=== PATIENT | male | born 1965 | race African-American/Black ===

== ENCOUNTER 2018-07-12 14:00 | Emergency (ER) | payer MEDICARE, MEDICAID ==
[~2018-07-12] VITALS: Ht 177.8 cm; Wt 145.0 kg
[2018-07-12 14:16] VITALS: BP 101/72
== END 2018-07-12 18:56 | disposition left against medical advice (07) ==
LOC: ER 14:00
DX: N39.0 Urinary tract infection, site not specified (principal); I10 Essential (primary) hypertension; F12.10 Cannabis abuse, uncomplicated; F17.200 Nicotine dependence, unspecified, uncomplicated; Z53.21 Procedure and treatment not carried out due to patient leaving prior to being seen by health care provider

== ENCOUNTER 2022-03-08 07:08 | Emergency (ER) | payer OTHER, MEDICAID ==
[~2022-03-08] VITALS: Ht 182.9 cm; Wt 137.0 kg
[2022-03-08] MEDS ORDERED: xarelto (07:47)
[2022-03-08] MEDS ORDERED: gabapentin (07:47)
[2022-03-08] MEDS ORDERED: metoprolol (07:47)
[2022-03-08] MEDS ORDERED: [UNRECOGNIZED DRUG - OTHER] (07:47)
[2022-03-08] MEDS ORDERED: AMOX1TAB15 PO (07:47)
[2022-03-08] MEDS ORDERED: LOSA1TAB37 PO (07:47)
[2022-03-08 08:24] LABS: HEMATOCRIT. 41.6 % (42.0-52.0); HEMOGLOBIN. 13.9 g/dL (14.0-18.0); MEAN CORPUSCULAR HEMOGLOBIN 27.5 pg (28.0-32.0); MEAN CORPUSCULAR VOLUME 81.9 fL (80.0-94.0); PLATELET 180 x1000/uL (130-400); RED BLOOD CELL COUNT 5.08 mill/uL (4.7-6.1); RED CELL DISTRIBUTION WIDTH 15.3 % (11.6-14.6)
[2022-03-08 08:42] LABS: CHLORIDE 96 mEq/L (98-107)
[2022-03-08] MEDS ORDERED: HYDROCODONE/ACETAMINOPHEN 5/325MG TABLET PO ONE (08:45)
[2022-03-08 09:44] LABS: PLATELET ESTIMATE NORMAL
[2022-03-08] MEDS ORDERED: CEFTRIAXONE SODIUM 1 G/VIAL IM ONE (10:30)
[2022-03-08] MEDS ORDERED: DOXY100C5 MT (10:57)
[2022-03-08] MEDS ORDERED: MAGNESIUM/ALUMINUM HYDROXIDE/SIMETHICONE 30ML UDC PO ONE (11:00)
[2022-03-08 11:09] LABS: CLARITY URINE CLOUDY (CLEAR); COLOR URINE ORANGE (YELLOW); KETONES URINE TRACE (NEGATIVE); LEUKOCYTE ESTERASE URINE 1+ (NEGATIVE); NITRITE URINE POSITIVE (NEGATIVE); OCCULT BLOOD URINE 2+ (NEGATIVE); PROTEIN URINE 3+ (NEGATIVE); SPECIFIC GRAVITY URINE 1.033 (1.005-1.030)
[2022-03-08 11:47] VITALS: BP 134/91
== END 2022-03-08 11:40 | disposition home or self-care (01) ==
LOC: ER 07:08
DX: N45.1 Epididymitis (principal); N30.00 Acute cystitis without hematuria; I10 Essential (primary) hypertension; F12.10 Cannabis abuse, uncomplicated; Z79.899 Other long term (current) drug therapy
CPT/HCPCS: 36415; 76870; 80053; 81003; 85025; 87086; 93976; 96372; 99284; J0696